=== PATIENT | female | born 1985 | race American Indian/Alaskan Native ===

== ENCOUNTER 2018-02-03 23:33 | Inpatient (IN) | payer OTHER ==
[2018-02-04 00:22] LABS: Mean Corpuscular HGB Conc 30 % (30-34); Mean Corpuscular Hemoglobin 28 pg (28-32); Mean Corpuscular Volume 95 fl (79-97); Platelet Count 173 K/mm3 (140-440); Red Cell Distribution Width 14.9 % (13.2-15.2)
[2018-02-04 00:25] LABS: Hematocrit 38.9 % (30.3-42.9); Hemoglobin 11.6 gm/dl (10.1-14.3)
[2018-02-04] MEDS ORDERED: NACL 0.9% 1000 ML 2,000 ML ONE (00:27)
[2018-02-04] MEDS ORDERED: HumuLIN R IV ONE (00:42)
[2018-02-04] MEDS ORDERED: D50W (25GM) Syringe IV PRN (00:43)
[2018-02-04] MEDS ORDERED: PROTONIX IV ONE (00:48)
[2018-02-04] MEDS ORDERED: PROTONIX 80 MG in NACL 0.9% 100 ML IV SCH (01:00)
[2018-02-04] MEDS ORDERED: ZOFRAN IV ONE (01:01)
--- NOTE | 2018-02-04 01:12 | Emergency Department Report ---
ED General Adult HPI - General Chief complaint: Hyperglycemia Stated complaint: HIGH BLOOD SUGAR Time Seen by Provider: 02/04/18 00:25 Source: patient, EMS Mode of arrival: Stretcher Limitations: No Limitations - History of Present Illness Initial comments: pt. is here for vomiting dark material and feels weak. this satrted today. she denies any abdominal pain. no fever. pt.takes insulin and says she as been taking it regularly MD Complaint: vomiting -: Gradual Location: mouth Radiation: non-radiation Severity scale (0 -10): 0 Consistency: intermittent Improves with: none Worsens with: none Associated Symptoms: denies other symptoms Treatments Prior to Arrival: none - Related Data Allergies Allergy/AdvReac Type Severity Reaction Status Date / Time No Known Allergies Allergy Verified 02/04/18 00:44 ED Review of Systems ROS: Stated complaint: HIGH BLOOD SUGAR Other details as noted in HPI Comment: All other systems reviewed and negative ED Past Medical Hx - Past Medical History Hx Diabetes: Yes - Surgical History Past Surgical History?: No - Social History Smoking Status: Never Smoker Substance Use Type: None ED Physical Exam - General Limitations: No Limitations General appearance: alert, in distress (moderate form vomting) - Head Head exam: Present: atraumatic, normocephalic - Eye Eye exam: Present: normal appearance, PERRL - ENT ENT exam: Present: mucous membranes moist - Neck Neck exam: Present: normal inspection - Respiratory Respiratory exam: Present: normal lung sounds bilaterally. Absent: respiratory distress - Cardiovascular Cardiovascular Exam: Present: regular rate, normal rhythm. Absent: systolic murmur, diastolic murmur, rubs, gallop - GI/Abdominal GI/Abdominal exam: Present: soft, normal bowel sounds. Absent: tenderness - Rectal Rectal exam: Present: deferred - Extremities Exam Extremities exam: Present: normal inspection - Back Exam Back exam: Present: normal inspection - Neurological Exam Neurological exam: Present: alert, oriented X3 - Psychiatric Psychiatric exam: Present: normal affect, normal mood - Skin Skin exam: Present: warm, dry, intact, normal color. Absent: rash ED Course Vital Signs 02/03/18 02/03/18 02/04/18 23:34 23:38 00:02 Temperature 97.7 F Pulse Rate 112 H 109 H Respiratory 14 14 16 Rate Blood Pressure 116/70 Blood Pressure 109/69 [Left] O2 Sat by Pulse 99 99 100 Oximetry 02/04/18 00:16 Temperature Pulse Rate 107 H Respiratory 26 H Rate Blood Pressure 116/70 Blood Pressure [Left] O2 Sat by Pulse 99 Oximetry ED Medical Decision Making - Lab Data Result diagrams: 02/03/18 23:44 02/03/18 23:44 - Medical Decision Making i spoke to Dr Tucker who as accepted the patient for admission Critical care attestation.: If time is entered above; I have spent that time in minutes in the direct care of this critically ill patient, excluding procedure time. ED Disposition Clinical Impression: DKA (diabetic ketoacidoses) Disposition: OP ADMIT IP TO THIS HOSP Is pt being admited?: Yes Does the pt Need Aspirin: No Condition: Stable Instructions: Diabetic Ketoacidosis (ED) Referrals: MARIANN SOFIA MD [Primary Care Provider] - 3-5 Days Time of Disposition: 01:13 Print Language: HEBREW
[2018-02-04 01:18] LABS: BUN/Creatinine Ratio 18; Blood Urea Nitrogen 21 mg/dL (7-17); Calcium 8.3 mg/dL (8.4-10.2); Hemolysis Index 6
[2018-02-04] MEDS ORDERED: SODIUM BICARBONATE IV ONE ×4 (01:28→08:00)
[2018-02-04] MEDS ORDERED: SODIUM CHLORIDE FLUSH SYRINGE 10 ML IV PRN (01:32)
[2018-02-04] MEDS ORDERED: ZOFRAN IV PRN (01:32)
--- NOTE | 2018-02-04 01:35 | History and Physical Report ---
History of Present Illness Date of examination: 02/04/18 History of present illness: 32 -year-old woman with a history of insulin-dependent diabetes comes emergency room with complaints of nausea and vomiting that started yesterday morning. After third episodes of vomiting, she started vomiting coffee-ground emesis, she has had multiple such episodes. She denies NSAID use. States she is compliant with medications. Complaining of generalized weakness Review of systems Constitutional: no weight loss, chills Ears, eyes, nose, mouth and throat: no nasal congestion, no nasal discharge, no sinus pressure, no vision change, no red eye. Neck: No neck pain or rigidity. Cardiovascular: no chest pain, palpitations Respiratory: No cough, shortness of breath Gastrointestinal: no abdominal pain, hematochezia Genitourinary : no dysuria, frequency , no hematuria Musculoskeletal: no joint swelling or muscle ache Integumentary: no rash, no pruritis Neurological: no parathesias, no numbness, no focal weakness Endocrine: no cold or heat intolerance, no polyuria or polydipsia Hematologic/Lymphatic: no easy bruising, no easy bleeding, no gland swelling Allergic/Immunologic: no urticaria, no angioedema. PAST MEDICAL HISTORY: Diabetes PAST SURGICAL HISTORY: None SOCIAL HISTORY: Denies alcohol, tobacco, drugs FAMILY HISTORY: Diabetes Medications and Allergies Allergies Allergy/AdvReac Type Severity Reaction Status Date / Time No Known Allergies Allergy Verified 02/04/18 00:44 Active Meds: Active Medications Dextrose (D50w (25gm) Syringe) 0 ml IV ONCE PRN PRN Reason: Hypoglycemia Insulin Human Regular 100 (units/ Sodium Chloride) 100 mls @ 1 mls/hr IV TITR LEONIDAS; Protocol Pantoprazole Sodium 80 mg/ (Sodium Chloride) 100 mls @ 10 mls/hr IV Q10H LEONIDAS Sodium Bicarbonate (Sodium Bicarbonate) 50 meq IV ONCE ONE Stop: 02/04/18 02:01 Exam - Physical Exam Narrative exam: Gen. appearance: Patient lying in bed, no apparent distress HEENT: Normocephalic, atraumatic, pupils equally round and reactive to light, extraocular movement intact, and no sclericterus,. No JVD or thyromegaly or nodule,neck supple, no carotid bruit ,mucous membranes moist, no exudate or erythema Heart: S1, S2, regular rate and rhythm Lungs: Clear to auscultation bilaterally, breathing comfortable Abdomen: Positive bowel sounds, nontender, nondistended, no organomegaly Extremity: No edema, cyanosis, clubbing Skin: No rash, nodules, warm, dry Neuro: Oriented 3, cranial nerves II-12 intact, speech is fluent, motor and sensory intact - Constitutional Vitals: Temp Pulse Resp BP Pulse Ox 97.7 F 107 H 26 H 116/70 99 02/03/18 23:34 02/04/18 00:16 02/04/18 00:16 02/04/18 00:16 02/04/18 00:16 Results - Labs CBC & Chem 7: 02/04/18 04:23 02/04/18 02:59 Labs: Abnormal lab results 02/03/18 02/03/18 02/03/18 Range/Units 23:41 23:44 23:44 WBC 12.4 H (4.5-11.0) K/mm3 VBG pH (7.320-7.420) Sodium 134 L (137-145) mmol/L Chloride 93.2 L (98-107) mmol/L Carbon Dioxide 7 L* (22-30) mmol/L BUN 21 H (7-17) mg/dL Creatinine 1.3 H (0.7-1.2) mg/dL Glucose 683 H* (65-100) mg/dL POC Glucose > 500 H (70-105) Calcium 8.0 L (8.4-10.2) mg/dL Phosphorus (2.5-4.5) mg/dL 02/03/18 02/04/18 Range/Units 23:44 00:56 WBC (4.5-11.0) K/mm3 VBG pH 7.204 L (7.320-7.420) Sodium (137-145) mmol/L Chloride 95.1 L (98-107) mmol/L Carbon Dioxide 6 L* (22-30) mmol/L BUN 21 H (7-17) mg/dL Creatinine (0.7-1.2) mg/dL Glucose 671 H* (65-100) mg/dL POC Glucose (70-105) Calcium 8.3 L (8.4-10.2) mg/dL Phosphorus 5.20 H (2.5-4.5) mg/dL Assessment and Plan Assessment DKA GI bleed, slightly secondary to Carole-Marie tear Plan Admit to medicine Start DKA protocol with insulin drip, the fluid check serial chemistry, fingersticks, given amp of bicarbonate Continue Protonix drip, check serial hemoglobin, cxr, pt/inr Consult GI, critical care, check hemoglobin A1c case d/w Dr Mclean DVT prophalaxis
[2018-02-04] MEDS ORDERED: D5/0.45NS 1,000 ML IV SCH (02:00)
[2018-02-04] MEDS: HumuLIN R 100 UNITS in NACL 0.9% 99 ML IV SCH ×2 (02:02→10:40)
[2018-02-04 02:17] LABS: Bilirubin,Urine NEG (Negative); Blood,Urine NEG (Negative); Color,Urine Yellow (Yellow); Mucus,Urine FEW /HPF; Protein,Urine <15 mg/dL mg/dL (Negative); RBC,Urine < 1.0 /HPF (0.0-6.0); Urobilinogen,Urine < 2.0 mg/dL (<2.0)
[2018-02-04 02:45] LABS: WBC,Urine < 1.0 /HPF (0.0-6.0)
[2018-02-04] MEDS: ZOFRAN IV PRN ×4 (03:02→23:35)
[2018-02-04] MEDS: NACL 0.9% 1000 ML 1,000 ML IV SCH ×2 (03:04→09:25)
[2018-02-04 03:48] LABS: Hematocrit 37.9 % (30.3-42.9); Hemoglobin 11.9 gm/dl (10.1-14.3)
[2018-02-04 03:52] LABS: Basophils % (Manual) 0 % (0.0-1.8); Eosinophils % (Manual) 0 % (0.0-4.3); Total Cells Counted 100
[2018-02-04 03:54] LABS: Burr Cells Rare; Platelet Estimate Consistent w Auto
[2018-02-04 03:57] LABS: INR 0.94 (0.87-1.13); Partial Thromboplastin Time 30.3 Sec. (24.2-36.6)
[2018-02-04 04:10] LABS: BUN/Creatinine Ratio 16; Blood Urea Nitrogen 19 mg/dL (7-17); Calcium 7.4 mg/dL (8.4-10.2); Hemolysis Index 6
--- NOTE | 2018-02-04 05:21 | XRay Report ---
FINAL REPORT EXAM: XR CHEST 1V AP HISTORY: gib TECHNIQUE: A portable semi-upright view the chest was submitted. FINDINGS: The heart size and mediastinum appear normal. The lungs are clear. The lungs are not congested. Pleural fluid is not seen. The bones and soft tissues do not show any acute changes. IMPRESSION: No active chest disease.
[2018-02-04 05:26] LABS: Hematocrit 34.4 % (30.3-42.9); Hemoglobin 11.5 gm/dl (10.1-14.3)
[2018-02-04] MEDS ORDERED: SODIUM BICARBONATE IV STA (06:40)
[2018-02-04] MEDS ORDERED: SODIUM BICARBONATE 50 MEQ in NACL 0.9% 1000 ML 1,000 ML IV SCH (07:00)
[2018-02-04 07:38] LABS: BUN/Creatinine Ratio 15; Blood Urea Nitrogen 17 mg/dL (7-17); Calcium 7.4 mg/dL (8.4-10.2); Hemolysis Index 6
--- NOTE | 2018-02-04 08:12 | Consultation ---
History of Present Illness - Reason for Consult Consult date: 02/04/18 DKA Requesting physician: DENZEL GRAHAM - History of Present Illness 32 y/o female, type 1 diabetic, on Humalog 15 in the morning and 30 at night admitted with DKA, nausea vomiting and abdominal pain. Patient states that she has been taking all medications and has not missed any. No sick contacts. She is not sure why she went into DKA. Denies dietary indiscretion. Remainder is negative. Past History Past Medical History: diabetes Past Surgical History: No surgical history Social history: no significant social history Family history: diabetes Medications and Allergies Allergies Allergy/AdvReac Type Severity Reaction Status Date / Time No Known Allergies Allergy Verified 02/04/18 00:44 Active Meds: Active Medications Dextrose (D50w (25gm) Syringe) 0 ml IV ONCE PRN PRN Reason: Hypoglycemia Insulin Human Regular 100 (units/ Sodium Chloride) 100 mls @ 1 mls/hr IV TITR LEONIDAS; Protocol Last Titration: 02/04/18 06:24 Dose: 14 units/hr, 14 mls/hr Pantoprazole Sodium 80 mg/ (Sodium Chloride) 100 mls @ 10 mls/hr IV Q10H LEONIDAS Last Admin: 02/04/18 02:01 Dose: 8 mg/hr, 10 mls/hr Dextrose/Sodium Chloride (D5/0.45ns) 1,000 mls @ 150 mls/hr IV DIRECT LEONIDAS Sodium Chloride (Nacl 0.9% 1000 Ml) 1,000 mls @ 150 mls/hr IV DIRECT LEONIDAS Last Admin: 02/04/18 03:04 Dose: 150 mls/hr Ondansetron HCl (Zofran) 4 mg IV Q4H PRN PRN Reason: Nausea And Vomiting Last Admin: 02/04/18 03:02 Dose: 4 mg Sodium Chloride (Sodium Chloride Flush Syringe 10 Ml) 10 ml IV BID LEONIDAS Sodium Chloride (Sodium Chloride Flush Syringe 10 Ml) 10 ml IV PRN PRN PRN Reason: LINE FLUSH Last Admin: 02/04/18 03:02 Dose: 10 ml Review of Systems All systems: negative Exam - Constitutional Vitals: Temp Pulse Resp BP Pulse Ox 98.3 F 100 H 19 113/71 100 02/04/18 04:11 02/04/18 07:44 02/04/18 07:44 02/04/18 06:37 02/04/18 07:44 General appearance: Present: mild distress - EENT Eyes: Present: PERRL, EOM intact ENT: hearing intact, clear oral mucosa - Neck Neck: Present: supple, normal ROM - Respiratory Respiratory effort: normal Respiratory: bilateral: CTA - Cardiovascular Rhythm: regular Heart Sounds: Present: S1 & S2 - Extremities Extremities: no ischemia - Abdominal General gastrointestinal: Present: soft, non-tender Female genitourinary: Present: deferred - Rectal Rectal Exam: deferred - Integumentary Integumentary: Present: clear, warm, dry - Musculoskeletal Musculoskeletal: strength equal bilaterally - Neurologic Neurologic: CNII-XII intact Results - Labs CBC & Chem 7: 02/04/18 04:23 02/04/18 07:01 Labs: Abnormal lab results 02/03/18 02/03/18 02/03/18 Range/Units 23:41 23:44 23:44 WBC 12.4 H (4.5-11.0) K/mm3 Seg Neuts % (Manual) 95.0 H (40.0-70.0) % Lymphocytes % (Manual) 2.0 L (13.4-35.0) % Seg Neutrophils # Man 11.8 H (1.8-7.7) K/mm3 Lymphocytes # (Manual) 0.2 L (1.2-5.4) K/mm3 VBG pH (7.320-7.420) Sodium 134 L (137-145) mmol/L Potassium (3.6-5.0) mmol/L Chloride 93.2 L (98-107) mmol/L Carbon Dioxide 7 L* (22-30) mmol/L BUN 21 H (7-17) mg/dL Creatinine 1.3 H (0.7-1.2) mg/dL Glucose 683 H* (65-100) mg/dL POC Glucose > 500 H (70-105) Hemoglobin A1c (4-6) % Calcium 8.0 L (8.4-10.2) mg/dL Phosphorus (2.5-4.5) mg/dL 02/03/18 02/04/18 02/04/18 Range/Units 23:44 00:56 02:44 WBC (4.5-11.0) K/mm3 Seg Neuts % (Manual) (40.0-70.0) % Lymphocytes % (Manual) (13.4-35.0) % Seg Neutrophils # Man (1.8-7.7) K/mm3 Lymphocytes # (Manual) (1.2-5.4) K/mm3 VBG pH 7.204 L (7.320-7.420) Sodium (137-145) mmol/L Potassium (3.6-5.0) mmol/L Chloride 95.1 L (98-107) mmol/L Carbon Dioxide 6 L* (22-30) mmol/L BUN 21 H (7-17) mg/dL Creatinine (0.7-1.2) mg/dL Glucose 671 H* (65-100) mg/dL POC Glucose 415 H (70-105) Hemoglobin A1c (4-6) % Calcium 8.3 L (8.4-10.2) mg/dL Phosphorus 5.20 H (2.5-4.5) mg/dL 02/04/18 02/04/18 02/04/18 Range/Units 02:59 02:59 04:10 WBC (4.5-11.0) K/mm3 Seg Neuts % (Manual) (40.0-70.0) % Lymphocytes % (Manual) (13.4-35.0) % Seg Neutrophils # Man (1.8-7.7) K/mm3 Lymphocytes # (Manual) (1.2-5.4) K/mm3 VBG pH (7.320-7.420) Sodium (137-145) mmol/L Potassium (3.6-5.0) mmol/L Chloride (98-107) mmol/L Carbon Dioxide 6 L* (22-30) mmol/L BUN 19 H (7-17) mg/dL Creatinine (0.7-1.2) mg/dL Glucose 473 H (65-100) mg/dL POC Glucose 308 H (70-105) Hemoglobin A1c 14.0 H (4-6) % Calcium 7.4 L (8.4-10.2) mg/dL Phosphorus (2.5-4.5) mg/dL 02/04/18 02/04/18 02/04/18 Range/Units 05:05 06:24 07:01 WBC (4.5-11.0) K/mm3 Seg Neuts % (Manual) (40.0-70.0) % Lymphocytes % (Manual) (13.4-35.0) % Seg Neutrophils # Man (1.8-7.7) K/mm3 Lymphocytes # (Manual) (1.2-5.4) K/mm3 VBG pH (7.320-7.420) Sodium 147 H (137-145) mmol/L Potassium 3.5 L (3.6-5.0) mmol/L Chloride (98-107) mmol/L Carbon Dioxide 10 L (22-30) mmol/L BUN (7-17) mg/dL Creatinine (0.7-1.2) mg/dL Glucose 363 H (65-100) mg/dL POC Glucose 338 H 377 H (70-105) Hemoglobin A1c (4-6) % Calcium 7.4 L (8.4-10.2) mg/dL Phosphorus (2.5-4.5) mg/dL - Imaging and Cardiology Chest x-ray: image reviewed (clear) Assessment and Plan 32 y/o female with known type 1 diabetes admitted with nausea and vomiting, found to be in DKA with concern for GI bleed with coffee ground emesis. 1. H/H's have been stable. Will stop PPI drip and change to BID IV PPI for now. 2. Follow up any GI recs 3. Continue normal saline and then when sugar drops below 250 will change to D5W with potassium 4. Will give IV K runs now. 5. Continue NPO status CCT 31 minutes.
[2018-02-04] MEDS: KCL 10MEQ/100ML 10 MEQ/100 ML BAG IV SCH ×4 (09:25→12:53)
[2018-02-04 09:28] LABS: BUN/Creatinine Ratio 15; Blood Urea Nitrogen 16 mg/dL (7-17); Calcium 7.7 mg/dL (8.4-10.2); Hemolysis Index 8
--- NOTE | 2018-02-04 11:06 | Progress Note ---
Assessment and Plan Assessment and plan: ([employer] crashed and lost entire a/p) DKA: continue insulin drip, ivf, follow anion gap Hematemesis: gi to see, repeat h/h IDDM uncontrolled with acidosis: treat with ivf and insulin N/V: treat with antiemetics, keep npo for now Diarrhea, resolved today, c.diffe ordered upon admission HCG ordered but not done History Interval history: Patient was seen and examined. Follow-up on current diagnosis of nausea or vomiting. Patient denies vomiting but she still nauseous. Overnight uneventful. Patient denies any chest pain, shortness breath or severe headaches. Imaging, nursing note, chart, labs and old chart reviewed. Discussed with patient. Patient denies any diarrhea currently. Hospitalist Physical - Physical exam Narrative exam: GEN: WDWN, ill-appearing, NAD, AWAKE, ALERT, ORIENTATED HEENT: NCAT, EOMI, PERRL, OP Clear NECK: supple, no adenopathy, no thyromegaly, no JVD CVS/HEART: Regular tachycardia, NORMAL S1S2, pulses present bilaterally CHEST/LUNGS: CTA B, Symmetrical chest expansion, good air entry bilaterally GI/Abdomen: soft, NTND, good bowel sounds, no guarding or rebound /Bladder: no suprapubic tenderness, no CVA or paraspinal tenderness EXT/Skin: no c/c/e, no obvious rash, mucous membranes dry MSK: FROM x 4 Neuro: CN 2-12 grossly intact, no new focal deficits Psych: calm - Constitutional Vitals: Temp Pulse Resp BP Pulse Ox 98.3 F 113 H 26 H 117/72 98 02/04/18 08:00 02/04/18 08:30 02/04/18 08:30 02/04/18 08:30 02/04/18 08:30 Results - Labs CBC & Chem 7: 02/04/18 04:23 02/04/18 08:52 Labs: Laboratory Last Values WBC 12.4 K/mm3 (4.5-11.0) H 02/03/18 23:44 RBC 4.10 M/mm3 (3.65-5.03) 02/03/18 23:44 Hgb 11.5 gm/dl (10.1-14.3) 02/04/18 04:23 Hct 34.4 % (30.3-42.9) 02/04/18 04:23 MCV 95 fl (79-97) 02/03/18 23:44 MCH 28 pg (28-32) 02/03/18 23:44 MCHC 30 % (30-34) 02/03/18 23:44 RDW 14.9 % (13.2-15.2) 02/03/18 23:44 Plt Count 173 K/mm3 (140-440) 02/03/18 23:44 Add Manual Diff Complete 02/03/18 23:44 Total Counted 100 02/03/18 23:44 Seg Neutrophils % Mattress Filling Machine Tender 02/03/18 23:44 Seg Neuts % (Manual) 95.0 % (40.0-70.0) H 02/03/18 23:44 Band Neutrophils % 0 % 02/03/18 23:44 Lymphocytes % (Manual) 2.0 % (13.4-35.0) L 02/03/18 23:44 Reactive Lymphs % (Man) 0 % 02/03/18 23:44 Monocytes % (Manual) 3.0 % (0.0-7.3) 02/03/18 23:44 Eosinophils % (Manual) 0 % (0.0-4.3) 02/03/18 23:44 Basophils % (Manual) 0 % (0.0-1.8) 02/03/18 23:44 Metamyelocytes % 0 % 02/03/18 23:44 Myelocytes % 0 % 02/03/18 23:44 Promyelocytes % 0 % 02/03/18 23:44 Blast Cells % 0 % 02/03/18 23:44 Nucleated RBC % Not Reportable 02/03/18 23:44 Seg Neutrophils # Man 11.8 K/mm3 (1.8-7.7) H 02/03/18 23:44 Band Neutrophils # 0.0 K/mm3 02/03/18 23:44 Lymphocytes # (Manual) 0.2 K/mm3 (1.2-5.4) L 02/03/18 23:44 Abs React Lymphs (Man) 0.0 K/mm3 02/03/18 23:44 Monocytes # (Manual) 0.4 K/mm3 (0.0-0.8) 02/03/18 23:44 Eosinophils # (Manual) 0.0 K/mm3 (0.0-0.4) 02/03/18 23:44 Basophils # (Manual) 0.0 K/mm3 (0.0-0.1) 02/03/18 23:44 Metamyelocytes # 0.0 K/mm3 02/03/18 23:44 Myelocytes # 0.0 K/mm3 02/03/18 23:44 Promyelocytes # 0.0 K/mm3 02/03/18 23:44 Blast Cells # 0.0 K/mm3 02/03/18 23:44 WBC Morphology Not Reportable 02/03/18 23:44 Hypersegmented Neuts Not Reportable 02/03/18 23:44 Hyposegmented Neuts Not Reportable 02/03/18 23:44 Hypogranular Neuts Not Reportable 02/03/18 23:44 Smudge Cells Not Reportable 02/03/18 23:44 Toxic Granulation Not Reportable 02/03/18 23:44 Toxic Vacuolation Not Reportable 02/03/18 23:44 Dohle Bodies Not Reportable 02/03/18 23:44 Pelger-Huet Anomaly Not Reportable 02/03/18 23:44 Lucas Rods Not Reportable 02/03/18 23:44 Platelet Estimate Consistent w auto 02/03/18 23:44 Clumped Platelets Not Reportable 02/03/18 23:44 Plt Clumps, EDTA Not Reportable 02/03/18 23:44 Large Platelets Not Reportable 02/03/18 23:44 Giant Platelets Not Reportable 02/03/18 23:44 Platelet Satelliting Not Reportable 02/03/18 23:44 Plt Morphology Comment Not Reportable 02/03/18 23:44 RBC Morphology Not Reportable 02/03/18 23:44 Dimorphic RBCs Not Reportable 02/03/18 23:44 Polychromasia Not Reportable 02/03/18 23:44 Hypochromasia Not Reportable 02/03/18 23:44 Poikilocytosis Not Reportable 02/03/18 23:44 Anisocytosis Not Reportable 02/03/18 23:44 Microcytosis Not Reportable 02/03/18 23:44 Macrocytosis Not Reportable 02/03/18 23:44 Spherocytes Not Reportable 02/03/18 23:44 Pappenheimer Bodies Not Reportable 02/03/18 23:44 Sickle Cells Not Reportable 02/03/18 23:44 Target Cells Not Reportable 02/03/18 23:44 Tear Drop Cells Not Reportable 02/03/18 23:44 Ovalocytes Not Reportable 02/03/18 23:44 Helmet Cells Not Reportable 02/03/18 23:44 [place] Bodies Not Reportable 02/03/18 23:44 Wesley Rings Not Reportable 02/03/18 23:44 [place] Cells Rare 02/03/18 23:44 Bite Cells Not Reportable 02/03/18 23:44 Crenated Cell Not Reportable 02/03/18 23:44 Elliptocytes Not Reportable 02/03/18 23:44 Acanthocytes (Spur) Not Reportable 02/03/18 23:44 Rouleaux Not Reportable 02/03/18 23:44 Hemoglobin C Crystals Not Reportable 02/03/18 23:44 Schistocytes Not Reportable 02/03/18 23:44 Malaria parasites Not Reportable 02/03/18 23:44 Afshin Bodies Not Reportable 02/03/18 23:44 Hem Pathologist Commnt No 02/03/18 23:44 PT 13.0 Sec. (12.2-14.9) 02/04/18 02:59 INR 0.94 (0.87-1.13) 02/04/18 02:59 APTT 30.3 Sec. (24.2-36.6) 02/04/18 02:59 VBG pH 7.204 (7.320-7.420) L 02/03/18 23:44 Sodium 144 mmol/L (137-145) 02/04/18 08:52 Potassium 3.5 mmol/L (3.6-5.0) L 02/04/18 08:52 Chloride 105.8 mmol/L (98-107) 02/04/18 08:52 Carbon Dioxide 10 mmol/L (22-30) L 02/04/18 08:52 Anion Gap 32 mmol/L 02/04/18 08:52 BUN 16 mg/dL (7-17) 02/04/18 08:52 Creatinine 1.1 mg/dL (0.7-1.2) 02/04/18 08:52 Estimated GFR > 60 ml/min 02/04/18 08:52 BUN/Creatinine Ratio 15 % 02/04/18 08:52 Glucose 361 mg/dL (65-100) H 02/04/18 08:52 POC Glucose 377 (70-105) H 02/04/18 06:24 Hemoglobin A1c 14.0 % (4-6) H 02/04/18 02:59 Calcium 7.7 mg/dL (8.4-10.2) L 02/04/18 08:52 Phosphorus 5.20 mg/dL (2.5-4.5) H 02/04/18 00:56 Magnesium 2.10 mg/dL (1.7-2.3) 02/04/18 00:56 Urine Color Yellow (Yellow) 02/04/18 02:00 Urine Turbidity Clear (Clear) 02/04/18 02:00 Urine pH 5.0 (5.0-7.0) 02/04/18 02:00 Ur Specific [place] 1.023 (1.003-1.030) 02/04/18 02:00 Urine Protein <15 mg/dl mg/dL (Negative) 02/04/18 02:00 Urine Glucose (UA) >=500 mg/dL (Negative) 02/04/18 02:00 Urine Ketones 80 mg/dL (Negative) 02/04/18 02:00 Urine Blood Neg (Negative) 02/04/18 02:00 Urine Nitrite Neg (Negative) 02/04/18 02:00 Urine Bilirubin Neg (Negative) 02/04/18 02:00 Urine Urobilinogen < 2.0 mg/dL (<2.0) 02/04/18 02:00 Ur Leukocyte Esterase Neg (Negative) 02/04/18 02:00 Urine WBC (Auto) < 1.0 /HPF (0.0-6.0) 02/04/18 02:00 Urine RBC (Auto) < 1.0 /HPF (0.0-6.0) 02/04/18 02:00 U Epithel Cells (Auto) < 1.0 /HPF (0-13.0) 02/04/18 02:00 Urine Mucus Few /HPF 02/04/18 02:00
[2018-02-04] MEDS: KCL 40 MEQ in D5W 1,000 ML IV SCH ×2 (11:30→17:59)
--- NOTE | 2018-02-04 12:25 | Consultation ---
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 She initially vomited food debris, and then blackish-green liquid. No daniel GI bleed. She vomited 2x at work, and then hourly at home, and presented to the ER where she was found to be in DKA. She has these episodes 1-2x/year over the last 3 years, and this is a typical episode. She denies prior GI bleed, or PUD. She has epigastric pain with vomiting. No prior abd pain. BMs 2-3x/d, no change. No F/C/NS. No clear precipitants. No hx of GERD. Denies EtOH or significant NSAIDs. Past History Past Medical History: diabetes (since age 19. Typically followed at [facility].) Past Surgical History: No surgical history Social history: no significant social history Family history: diabetes Medications and Allergies Allergies Allergy/AdvReac Type Severity Reaction Status Date / Time No Known Allergies Allergy Verified 02/04/18 00:44 Active Meds: Active Medications Dextrose (D50w (25gm) Syringe) 0 ml IV ONCE PRN PRN Reason: Hypoglycemia Insulin Human Regular 100 (units/ Sodium Chloride) 100 mls @ 1 mls/hr IV TITR LEONIDAS; Protocol Last Titration: 02/04/18 09:30 Dose: 14 units/hr, 14 mls/hr Sodium Chloride (Nacl 0.9% 1000 Ml) 1,000 mls @ 150 mls/hr IV DIRECT LEONIDAS Last Admin: 02/04/18 09:25 Dose: 150 mls/hr Potassium Chloride 40 meq/ (Dextrose) 1,020 mls @ 150 mls/hr IV DIRECT LEONIDAS Potassium Chloride (Kcl 10meq/100ml) 10 meq in 100 mls @ 100 mls/hr IV Q1H LEONIDAS Stop: 02/04/18 12:59 Last Admin: 02/04/18 09:25 Dose: 100 mls/hr Ondansetron HCl (Zofran) 4 mg IV Q4H PRN PRN Reason: Nausea And Vomiting Last Admin: 02/04/18 09:25 Dose: 4 mg Pantoprazole Sodium (Protonix) 40 mg IV BID LEONIDAS Sodium Chloride (Sodium Chloride Flush Syringe 10 Ml) 10 ml IV BID LEONIDAS Sodium Chloride (Sodium Chloride Flush Syringe 10 Ml) 10 ml IV PRN PRN PRN Reason: LINE FLUSH Last Admin: 02/04/18 03:02 Dose: 10 ml Review of Systems All systems: negative (as per HPI) Exam - Constitutional Vitals: Temp Pulse Resp BP Pulse Ox 98.3 F 91 H 22 103/55 98 02/04/18 08:00 02/04/18 12:00 02/04/18 12:00 02/04/18 12:00 02/04/18 10:01 General appearance: Present: no acute distress - EENT Eyes: Present: PERRL, EOM intact ENT: hearing intact - Neck Neck: Present: supple, normal ROM - Respiratory Respiratory effort: normal - Cardiovascular Rhythm: regular Heart Sounds: Present: S1 & S2 - Extremities Extremities: No edema - Abdominal General gastrointestinal: Present: soft, non-tender Results - Labs CBC & Chem 7: 02/04/18 04:23 02/04/18 08:52 Labs: Abnormal lab results 02/03/18 02/03/18 02/03/18 Range/Units 23:41 23:44 23:44 WBC 12.4 H (4.5-11.0) K/mm3 Seg Neuts % (Manual) 95.0 H (40.0-70.0) % Lymphocytes % (Manual) 2.0 L (13.4-35.0) % Seg Neutrophils # Man 11.8 H (1.8-7.7) K/mm3 Lymphocytes # (Manual) 0.2 L (1.2-5.4) K/mm3 VBG pH (7.320-7.420) Sodium 134 L (137-145) mmol/L Potassium (3.6-5.0) mmol/L Chloride 93.2 L (98-107) mmol/L Carbon Dioxide 7 L* (22-30) mmol/L BUN 21 H (7-17) mg/dL Creatinine 1.3 H (0.7-1.2) mg/dL Glucose 683 H* (65-100) mg/dL POC Glucose > 500 H (70-105) Hemoglobin A1c (4-6) % Calcium 8.0 L (8.4-10.2) mg/dL Phosphorus (2.5-4.5) mg/dL 02/03/18 02/04/18 02/04/18 Range/Units 23:44 00:56 02:44 WBC (4.5-11.0) K/mm3 Seg Neuts % (Manual) (40.0-70.0) % Lymphocytes % (Manual) (13.4-35.0) % Seg Neutrophils # Man (1.8-7.7) K/mm3 Lymphocytes # (Manual) (1.2-5.4) K/mm3 VBG pH 7.204 L (7.320-7.420) Sodium (137-145) mmol/L Potassium (3.6-5.0) mmol/L Chloride 95.1 L (98-107) mmol/L Carbon Dioxide 6 L* (22-30) mmol/L BUN 21 H (7-17) mg/dL Creatinine (0.7-1.2) mg/dL Glucose 671 H* (65-100) mg/dL POC Glucose 415 H (70-105) Hemoglobin A1c (4-6) % Calcium 8.3 L (8.4-10.2) mg/dL Phosphorus 5.20 H (2.5-4.5) mg/dL 02/04/18 02/04/18 02/04/18 Range/Units 02:59 02:59 04:10 WBC (4.5-11.0) K/mm3 Seg Neuts % (Manual) (40.0-70.0) % Lymphocytes % (Manual) (13.4-35.0) % Seg Neutrophils # Man (1.8-7.7) K/mm3 Lymphocytes # (Manual) (1.2-5.4) K/mm3 VBG pH (7.320-7.420) Sodium (137-145) mmol/L Potassium (3.6-5.0) mmol/L Chloride (98-107) mmol/L Carbon Dioxide 6 L* (22-30) mmol/L BUN 19 H (7-17) mg/dL Creatinine (0.7-1.2) mg/dL Glucose 473 H (65-100) mg/dL POC Glucose 308 H (70-105) Hemoglobin A1c 14.0 H (4-6) % Calcium 7.4 L (8.4-10.2) mg/dL Phosphorus (2.5-4.5) mg/dL 02/04/18 02/04/18 02/04/18 Range/Units 05:05 06:24 07:01 WBC (4.5-11.0) K/mm3 Seg Neuts % (Manual) (40.0-70.0) % Lymphocytes % (Manual) (13.4-35.0) % Seg Neutrophils # Man (1.8-7.7) K/mm3 Lymphocytes # (Manual) (1.2-5.4) K/mm3 VBG pH (7.320-7.420) Sodium 147 H (137-145) mmol/L Potassium 3.5 L (3.6-5.0) mmol/L Chloride (98-107) mmol/L Carbon Dioxide 10 L (22-30) mmol/L BUN (7-17) mg/dL Creatinine (0.7-1.2) mg/dL Glucose 363 H (65-100) mg/dL POC Glucose 338 H 377 H (70-105) Hemoglobin A1c (4-6) % Calcium 7.4 L (8.4-10.2) mg/dL Phosphorus (2.5-4.5) mg/dL 02/04/18 Range/Units 08:52 WBC (4.5-11.0) K/mm3 Seg Neuts % (Manual) (40.0-70.0) % Lymphocytes % (Manual) (13.4-35.0) % Seg Neutrophils # Man (1.8-7.7) K/mm3 Lymphocytes # (Manual) (1.2-5.4) K/mm3 VBG pH (7.320-7.420) Sodium (137-145) mmol/L Potassium 3.5 L (3.6-5.0) mmol/L Chloride (98-107) mmol/L Carbon Dioxide 10 L (22-30) mmol/L BUN (7-17) mg/dL Creatinine (0.7-1.2) mg/dL Glucose 361 H (65-100) mg/dL POC Glucose (70-105) Hemoglobin A1c (4-6) % Calcium 7.7 L (8.4-10.2) mg/dL Phosphorus (2.5-4.5) mg/dL Assessment and Plan 1. N/V - due to DKA, and seems to be a typical episode. No evidence of coffee ground emesis, or of GI bleed. - no plans for GI intervention - correct DKA and optimize management. Will sign off. Thanks.
[2018-02-04] MEDS: PROTONIX IV SCH ×2 (12:52→23:35)
[2018-02-04 17:04] LABS: BUN/Creatinine Ratio 14; Blood Urea Nitrogen 13 mg/dL (7-17); Calcium 7.3 mg/dL (8.4-10.2); Hemolysis Index 26
[2018-02-04] MEDS: SODIUM CHLORIDE FLUSH SYRINGE 10 ML IV SCH ×2 (18:53→23:36)
[2018-02-04 23:28] LABS: HCG Qualitative,Urine Negative (Negative)
[2018-02-05 00:56] LABS: BUN/Creatinine Ratio 11; Blood Urea Nitrogen 10 mg/dL (7-17); Calcium 7.3 mg/dL (8.4-10.2); Hemolysis Index 4
[2018-02-05] MEDS: ZOFRAN IV PRN ×3 (04:31→15:26)
--- NOTE | 2018-02-05 08:28 | Progress Note ---
Assessment and Plan 32 y/o female with known type 1 diabetes admitted with nausea and vomiting, found to be in DKA with concern for GI bleed with coffee ground emesis. 1. Continue Insulin drip until Anion Gap is between 12-16 then can transition to long acting insulin after calculating her 24 hour requirement prior to gap closing. 2. Agree with GI, can change to pepcid given no history of GERD. Most likely daily dosing is fine 3. Ok with water, but no juice 4. Will reorder chemistries as most likely the timing on the protocol has completed. CCT 31 minutes. Subjective Date of service: 02/05/18 Interval history: patient feels better today. Anion Gap is improving. Sugars are better controlled but patient remains in ketogenesis. She is thirsty but does not have an appetite. Objective - Constitutional Vitals: Vital Signs - 12hr 02/04/18 02/04/18 02/04/18 21:00 22:00 23:01 Temperature Pulse Rate 93 H 92 H 97 H Pulse Rate [ From Monitor] Respiratory 13 16 20 Rate Blood Pressure 99/57 108/66 108/66 O2 Sat by Pulse Oximetry 02/04/18 02/05/18 02/05/18 23:35 00:00 00:35 Temperature 98.8 F Pulse Rate 99 H 95 H Pulse Rate [ 100 H From Monitor] Respiratory 17 21 Rate Blood Pressure 127/85 127/85 O2 Sat by Pulse 98 99 Oximetry 02/05/18 02/05/18 02/05/18 01:00 02:00 03:00 Temperature Pulse Rate 96 H 94 H 99 H Pulse Rate [ From Monitor] Respiratory 20 21 21 Rate Blood Pressure 110/73 114/75 124/79 O2 Sat by Pulse 99 98 98 Oximetry 02/05/18 02/05/18 02/05/18 04:00 05:00 06:00 Temperature 98.7 F Pulse Rate 100 H 103 H 103 H Pulse Rate [ From Monitor] Respiratory 21 21 22 Rate Blood Pressure 120/80 107/73 115/78 O2 Sat by Pulse 98 99 98 Oximetry 02/05/18 07:01 Temperature Pulse Rate 99 H Pulse Rate [ From Monitor] Respiratory 20 Rate Blood Pressure 115/78 O2 Sat by Pulse 99 Oximetry General appearance: Present: no acute distress, well-nourished - EENT Eyes: PERRL, EOM intact ENT: hearing intact, clear oral mucosa, dentition normal - Neck Neck: supple, normal ROM - Respiratory Respiratory effort: normal Respiratory: bilateral: CTA - Breasts Breasts: deferred - Cardiovascular Rhythm: regular (sinus tachycardia) Heart Sounds: Present: S1 & S2 Extremities: no ischemia, No edema - Gastrointestinal General gastrointestinal: Present: soft, non-tender, normal bowel sounds Rectal Exam: deferred - Genitourinary Female genitourinary: deferred - Integumentary Integumentary: clear, warm, dry - Musculoskeletal Musculoskeletal: strength equal bilaterally - Neurologic Neurologic: CNII-XII intact - Psychiatric Psychiatric: appropriate mood/affect - Labs CBC & Chem 7: 02/04/18 04:23 02/05/18 00:21 Labs: Abnormal lab results 02/04/18 02/04/18 02/04/18 Range/Units 08:17 08:52 09:33 Sodium (137-145) mmol/L Potassium 3.5 L (3.6-5.0) mmol/L Chloride (98-107) mmol/L Carbon Dioxide 10 L (22-30) mmol/L Glucose 361 H (65-100) mg/dL POC Glucose 372 H 272 H (70-105) Calcium 7.7 L (8.4-10.2) mg/dL 02/04/18 02/04/18 02/04/18 Range/Units 11:35 13:00 13:58 Sodium (137-145) mmol/L Potassium (3.6-5.0) mmol/L Chloride (98-107) mmol/L Carbon Dioxide (22-30) mmol/L Glucose (65-100) mg/dL POC Glucose 130 H 137 H 120 H (70-105) Calcium (8.4-10.2) mg/dL 02/04/18 02/04/18 02/04/18 Range/Units 14:45 16:28 16:35 Sodium 152 H D (137-145) mmol/L Potassium (3.6-5.0) mmol/L Chloride 112.9 H (98-107) mmol/L Carbon Dioxide 18 L D (22-30) mmol/L Glucose 128 H (65-100) mg/dL POC Glucose 126 H 123 H (70-105) Calcium 7.3 L (8.4-10.2) mg/dL 0402/04/18 02/04/18 Range/Units 18:54 20:04 21:08 Sodium (137-145) mmol/L Potassium (3.6-5.0) mmol/L Chloride (98-107) mmol/L Carbon Dioxide (22-30) mmol/L Glucose (65-100) mg/dL POC Glucose 123 H 124 H 122 H (70-105) Calcium (8.4-10.2) mg/dL 02/04/18 02/04/18 02/05/18 Range/Units 22:16 23:07 00:03 Sodium (137-145) mmol/L Potassium (3.6-5.0) mmol/L Chloride (98-107) mmol/L Carbon Dioxide (22-30) mmol/L Glucose (65-100) mg/dL POC Glucose 142 H 137 H 130 H (70-105) Calcium (8.4-10.2) mg/dL 02/05/18 02/05/18 02/05/18 Range/Units 00:21 01:15 02:25 Sodium 149 H (137-145) mmol/L Potassium (3.6-5.0) mmol/L Chloride 112.1 H (98-107) mmol/L Carbon Dioxide 19 L (22-30) mmol/L Glucose 122 H (65-100) mg/dL POC Glucose 142 H 152 H (70-105) Calcium 7.3 L (8.4-10.2) mg/dL 02/05/18 02/05/18 Range/Units 03:23 04:28 Sodium (137-145) mmol/L Potassium (3.6-5.0) mmol/L Chloride (98-107) mmol/L Carbon Dioxide (22-30) mmol/L Glucose (65-100) mg/dL POC Glucose 127 H 195 H (70-105) Calcium (8.4-10.2) mg/dL
[2018-02-05] MEDS: SODIUM CHLORIDE FLUSH SYRINGE 10 ML IV SCH ×2 (09:00→22:28)
[2018-02-05] MEDS: PROTONIX IV SCH ×2 (09:00→22:27)
[2018-02-05] MEDS ORDERED: COMPAZINE IV PRN (09:01)
[2018-02-05] MEDS ORDERED: D5W 1,000 ML IV SCH (10:00)
[2018-02-05] MEDS: HumuLIN R 100 UNITS in NACL 0.9% 99 ML IV SCH (11:01)
--- NOTE | 2018-02-05 11:38 | Progress Note ---
Assessment and Plan Assessment and plan: Patient is a 32 yo woman with a history of IDDM who presented with intractable n /v leading to retching and coffee ground emesis after repeated vomiting. DKA: continue insulin drip, ivf, follow anion gap Hematemesis resolved IDDM uncontrolled with acidosis: treat with ivf and insulin N/V: treat with antiemetics, keep npo for now Diarrhea, resolved today, c.diffe negative HCG ordered and negative 02/04/18: Still in icu on insulin drip and ivf, anion gap is closing, symptoms are improving, check anion gap at noon. Nurse will call me with results History Interval history: Patient was seen and examined. Follow-up on current diagnosis of nausea or vomiting. Patient denies vomiting and nauseous is improving. Overnight uneventful. Patient denies any chest pain, shortness breath or severe headaches. Imaging, nursing note, chart, labs and old chart reviewed. Discussed with patient. Patient denies any diarrhea currently. Hospitalist Physical - Physical exam Narrative exam: GEN: WDWN, ill-appearing, NAD, AWAKE, ALERT, ORIENTATED HEENT: NCAT, EOMI, PERRL, OP Clear NECK: supple, no adenopathy, no thyromegaly, no JVD CVS/HEART: Regular tachycardia, NORMAL S1S2, pulses present bilaterally CHEST/LUNGS: CTA B, Symmetrical chest expansion, good air entry bilaterally GI/Abdomen: soft, NTND, good bowel sounds, no guarding or rebound /Bladder: no suprapubic tenderness, no CVA or paraspinal tenderness EXT/Skin: no c/c/e, no obvious rash, mucous membranes dry MSK: FROM x 4 Neuro: CN 2-12 grossly intact, no new focal deficits Psych: calm - Constitutional Vitals: Temp Pulse Resp BP Pulse Ox 98.8 F 102 H 21 105/70 99 02/05/18 08:00 02/05/18 11:00 02/05/18 11:00 02/05/18 11:00 02/05/18 11:00 General appearance: Present: no acute distress, well-nourished Results - Labs CBC & Chem 7: 02/04/18 04:23 02/05/18 00:21 Labs: Laboratory Last Values WBC 12.4 K/mm3 (4.5-11.0) H 02/03/18 23:44 RBC 4.10 M/mm3 (3.65-5.03) 02/03/18 23:44 Hgb 11.5 gm/dl (10.1-14.3) 02/04/18 04:23 Hct 34.4 % (30.3-42.9) 02/04/18 04:23 MCV 95 fl (79-97) 02/03/18 23:44 MCH 28 pg (28-32) 02/03/18 23:44 MCHC 30 % (30-34) 02/03/18 23:44 RDW 14.9 % (13.2-15.2) 02/03/18 23:44 Plt Count 173 K/mm3 (140-440) 02/03/18 23:44 Add Manual Diff Complete 02/03/18 23:44 Total Counted 100 02/03/18 23:44 Seg Neutrophils % [employer]ber Management Professor 02/03/18 23:44 Seg Neuts % (Manual) 95.0 % (40.0-70.0) H 02/03/18 23:44 Band Neutrophils % 0 % 02/03/18 23:44 Lymphocytes % (Manual) 2.0 % (13.4-35.0) L 02/03/18 23:44 Reactive Lymphs % (Man) 0 % 02/03/18 23:44 Monocytes % (Manual) 3.0 % (0.0-7.3) 02/03/18 23:44 Eosinophils % (Manual) 0 % (0.0-4.3) 02/03/18 23:44 Basophils % (Manual) 0 % (0.0-1.8) 02/03/18 23:44 Metamyelocytes % 0 % 02/03/18 23:44 Myelocytes % 0 % 02/03/18 23:44 Promyelocytes % 0 % 02/03/18 23:44 Blast Cells % 0 % 02/03/18 23:44 Nucleated RBC % Not Reportable 02/03/18 23:44 Seg Neutrophils # Man 11.8 K/mm3 (1.8-7.7) H 02/03/18 23:44 Band Neutrophils # 0.0 K/mm3 02/03/18 23:44 Lymphocytes # (Manual) 0.2 K/mm3 (1.2-5.4) L 02/03/18 23:44 Abs React Lymphs (Man) 0.0 K/mm3 02/03/18 23:44 Monocytes # (Manual) 0.4 K/mm3 (0.0-0.8) 02/03/18 23:44 Eosinophils # (Manual) 0.0 K/mm3 (0.0-0.4) 02/03/18 23:44 Basophils # (Manual) 0.0 K/mm3 (0.0-0.1) 02/03/18 23:44 Metamyelocytes # 0.0 K/mm3 02/03/18 23:44 Myelocytes # 0.0 K/mm3 02/03/18 23:44 Promyelocytes # 0.0 K/mm3 02/03/18 23:44 Blast Cells # 0.0 K/mm3 02/03/18 23:44 WBC Morphology Not Reportable 02/03/18 23:44 Hypersegmented Neuts Not Reportable 02/03/18 23:44 Hyposegmented Neuts Not Reportable 02/03/18 23:44 Hypogranular Neuts Not Reportable 02/03/18 23:44 Smudge Cells Not Reportable 02/03/18 23:44 Toxic Granulation Not Reportable 02/03/18 23:44 Toxic Vacuolation Not Reportable 02/03/18 23:44 Dohle Bodies Not Reportable 02/03/18 23:44 Pelger-Huet Anomaly Not Reportable 02/03/18 23:44 Lucas Rods Not Reportable 02/03/18 23:44 Platelet Estimate Consistent w auto 02/03/18 23:44 Clumped Platelets Not Reportable 02/03/18 23:44 Plt Clumps, EDTA Not Reportable 02/03/18 23:44 Large Platelets Not Reportable 02/03/18 23:44 Giant Platelets Not Reportable 02/03/18 23:44 Platelet Satelliting Not Reportable 02/03/18 23:44 Plt Morphology Comment Not Reportable 02/03/18 23:44 RBC Morphology Not Reportable 02/03/18 23:44 Dimorphic RBCs Not Reportable 02/03/18 23:44 Polychromasia Not Reportable 02/03/18 23:44 Hypochromasia Not Reportable 02/03/18 23:44 Poikilocytosis Not Reportable 02/03/18 23:44 Anisocytosis Not Reportable 02/03/18 23:44 Microcytosis Not Reportable 02/03/18 23:44 Macrocytosis Not Reportable 02/03/18 23:44 Spherocytes Not Reportable 02/03/18 23:44 Pappenheimer Bodies Not Reportable 02/03/18 23:44 Sickle Cells Not Reportable 02/03/18 23:44 Target Cells Not Reportable 02/03/18 23:44 Tear Drop Cells Not Reportable 02/03/18 23:44 Ovalocytes Not Reportable 02/03/18 23:44 Helmet Cells Not Reportable 02/03/18 23:44 [place] Bodies Not Reportable 02/03/18 23:44 [place] Rings Not Reportable 02/03/18 23:44 [place] Cells Rare 02/03/18 23:44 Bite Cells Not Reportable 02/03/18 23:44 Crenated Cell Not Reportable 02/03/18 23:44 Elliptocytes Not Reportable 02/03/18 23:44 Acanthocytes (Spur) Not Reportable 02/03/18 23:44 Rouleaux Not Reportable 02/03/18 23:44 Hemoglobin C Crystals Not Reportable 02/03/18 23:44 Schistocytes Not Reportable 02/03/18 23:44 Malaria parasites Not Reportable 02/03/18 23:44 Afshin Bodies Not Reportable 02/03/18 23:44 Hem Pathologist Commnt No 02/03/18 23:44 PT 13.0 Sec. (12.2-14.9) 02/04/18 02:59 INR 0.94 (0.87-1.13) 02/04/18 02:59 APTT 30.3 Sec. (24.2-36.6) 02/04/18 02:59 VBG pH 7.204 (7.320-7.420) L 02/03/18 23:44 Sodium 149 mmol/L (137-145) H 02/05/18 00:21 Potassium 3.9 mmol/L (3.6-5.0) 02/05/18 00:21 Chloride 112.1 mmol/L (98-107) H 02/05/18 00:21 Carbon Dioxide 19 mmol/L (22-30) L 02/05/18 00:21 Anion Gap 22 mmol/L 02/05/18 00:21 BUN 10 mg/dL (7-17) 02/05/18 00:21 Creatinine 0.9 mg/dL (0.7-1.2) 02/05/18 00:21 Estimated GFR > 60 ml/min 02/05/18 00:21 BUN/Creatinine Ratio 11 % 02/05/18 00:21 Glucose 122 mg/dL (65-100) H 02/05/18 00:21 POC Glucose 213 (70-105) H 02/05/18 08:48 Hemoglobin A1c 14.0 % (4-6) H 02/04/18 02:59 Calcium 7.3 mg/dL (8.4-10.2) L 02/05/18 00:21 Phosphorus 5.20 mg/dL (2.5-4.5) H 02/04/18 00:56 Magnesium 2.10 mg/dL (1.7-2.3) 02/04/18 00:56 Urine Color Yellow (Yellow) 02/04/18 02:00 Urine Turbidity Clear (Clear) 02/04/18 02:00 Urine pH 5.0 (5.0-7.0) 02/04/18 02:00 Ur Specific Devol 1.023 (1.003-1.030) 02/04/18 02:00 Urine Protein <15 mg/dl mg/dL (Negative) 02/04/18 02:00 Urine Glucose (UA) >=500 mg/dL (Negative) 02/04/18 02:00 Urine Ketones 80 mg/dL (Negative) 02/04/18 02:00 Urine Blood Neg (Negative) 02/04/18 02:00 Urine Nitrite Neg (Negative) 02/04/18 02:00 Urine Bilirubin Neg (Negative) 02/04/18 02:00 Urine Urobilinogen < 2.0 mg/dL (<2.0) 02/04/18 02:00 Ur Leukocyte Esterase Neg (Negative) 02/04/18 02:00 Urine WBC (Auto) < 1.0 /HPF (0.0-6.0) 02/04/18 02:00 Urine RBC (Auto) < 1.0 /HPF (0.0-6.0) 02/04/18 02:00 U Epithel Cells (Auto) < 1.0 /HPF (0-13.0) 02/04/18 02:00 Urine Mucus Few /HPF 02/04/18 02:00 Urine HCG, Qual Negative (Negative) 02/04/18 22:30 C. difficile Toxin A&B Negative (Negative) 02/04/18 05:50
[2018-02-05 13:55] LABS: BUN/Creatinine Ratio 8; Blood Urea Nitrogen 7 mg/dL (7-17); Calcium 7.6 mg/dL (8.4-10.2); Hemolysis Index 4
[2018-02-05] MEDS ORDERED: D50W (25GM) Syringe IV PRN (14:36)
[2018-02-05] MEDS ORDERED: REGLAN IV PRN (14:44)
[2018-02-05] MEDS ORDERED: LANTUS SUB-Q ONE ×2 (15:00)
[2018-02-05] MEDS: HumaLOG SUB-Q SCH ×2 (18:22→22:27)
[2018-02-06 05:51] LABS: BUN/Creatinine Ratio 9; Blood Urea Nitrogen 7 mg/dL (7-17); Calcium 7.6 mg/dL (8.4-10.2); Hemolysis Index 3
--- NOTE | 2018-02-06 07:44 | Event Note ---
Date: 02/06/18 Pt. with DKA, now transferred out of ICU. No active pulmonary issues noted. Will thus sign off. Please call with questions, or new issues develop.
[2018-02-06] MEDS ORDERED: LANTUS SUB-Q SCH (08:00)
[2018-02-06] MEDS: LANTUS SUB-Q SCH (09:29)
[2018-02-06] MEDS: SODIUM CHLORIDE FLUSH SYRINGE 10 ML IV SCH ×2 (09:30→21:36)
[2018-02-06] MEDS: HumaLOG SUB-Q SCH ×4 (09:30→23:50)
[2018-02-06] MEDS: NACL 0.9% 1000 ML 1,000 ML IV SCH ×2 (09:30→18:54)
--- NOTE | 2018-02-06 11:37 | Progress Note ---
Assessment and Plan Assessment and plan: Patient is a 32 yo woman with a history of IDDM who presented with intractable n /v leading to retching and coffee ground emesis after repeated vomiting. DKA: continue insulin drip, ivf, follow anion gap Hematemesis resolved, seen by GI IDDM uncontrolled with acidosis: treat with ivf and insulin N/V: treat with antiemetics, keep npo for now Diarrhea, resolved today, c.diffe negative HCG ordered and negative 02/04/18: Still in icu on insulin drip and ivf, anion gap is closing, symptoms are improving, check anion gap at noon. Nurse will call me with results==>anion gap closed, transition to basal bolus regimen and transfer out icu 02/05/18: anion gap remain closed but pt still not tolerating liquids, will add iv reglan, iv ativan prn. Pt takes 30 units of lantus at night and 12 units of novolog tidac at home. Dispo: once tolerating liquids, will d/c home. History Interval history: Patient was seen and examined. Follow-up on current diagnosis of nausea or vomiting. Patient vomited apple juice this morning. Overnight uneventful. Patient denies any chest pain, shortness breath or severe headaches. Imaging, nursing note, chart, labs and old chart reviewed. Discussed with patient. Patient denies any diarrhea currently. Hospitalist Physical - Physical exam Narrative exam: GEN: WDWN, ill-appearing, NAD, AWAKE, ALERT, ORIENTATED HEENT: NCAT, EOMI, PERRL, OP Clear NECK: supple, no adenopathy, no thyromegaly, no JVD CVS/HEART: Regular tachycardia, NORMAL S1S2, pulses present bilaterally CHEST/LUNGS: CTA B, Symmetrical chest expansion, good air entry bilaterally GI/Abdomen: soft, NTND, good bowel sounds, no guarding or rebound /Bladder: no suprapubic tenderness, no CVA or paraspinal tenderness EXT/Skin: no c/c/e, no obvious rash, mucous membranes dry MSK: FROM x 4 Neuro: CN 2-12 grossly intact, no new focal deficits Psych: calm - Constitutional Vitals: Temp Pulse Resp BP Pulse Ox 98.7 F 96 H 16 127/86 100 02/06/18 07:42 02/06/18 07:42 02/06/18 07:42 02/06/18 07:42 02/06/18 09:25 General appearance: Present: no acute distress, well-nourished Results - Labs CBC & Chem 7: 02/04/18 04:23 02/06/18 05:17 Labs: Laboratory Last Values WBC 12.4 K/mm3 (4.5-11.0) H 02/03/18 23:44 RBC 4.10 M/mm3 (3.65-5.03) 02/03/18 23:44 Hgb 11.5 gm/dl (10.1-14.3) 02/04/18 04:23 Hct 34.4 % (30.3-42.9) 02/04/18 04:23 MCV 95 fl (79-97) 02/03/18 23:44 MCH 28 pg (28-32) 02/03/18 23:44 MCHC 30 % (30-34) 02/03/18 23:44 RDW 14.9 % (13.2-15.2) 02/03/18 23:44 Plt Count 173 K/mm3 (140-440) 02/03/18 23:44 Add Manual Diff Complete 02/03/18 23:44 Total Counted 100 02/03/18 23:44 Seg Neutrophils % Acoustic Intelligence Specialist 02/03/18 23:44 Seg Neuts % (Manual) 95.0 % (40.0-70.0) H 02/03/18 23:44 Band Neutrophils % 0 % 02/03/18 23:44 Lymphocytes % (Manual) 2.0 % (13.4-35.0) L 02/03/18 23:44 Reactive Lymphs % (Man) 0 % 02/03/18 23:44 Monocytes % (Manual) 3.0 % (0.0-7.3) 02/03/18 23:44 Eosinophils % (Manual) 0 % (0.0-4.3) 02/03/18 23:44 Basophils % (Manual) 0 % (0.0-1.8) 02/03/18 23:44 Metamyelocytes % 0 % 02/03/18 23:44 Myelocytes % 0 % 02/03/18 23:44 Promyelocytes % 0 % 02/03/18 23:44 Blast Cells % 0 % 02/03/18 23:44 Nucleated RBC % Not Reportable 02/03/18 23:44 Seg Neutrophils # Man 11.8 K/mm3 (1.8-7.7) H 02/03/18 23:44 Band Neutrophils # 0.0 K/mm3 02/03/18 23:44 Lymphocytes # (Manual) 0.2 K/mm3 (1.2-5.4) L 02/03/18 23:44 Abs React Lymphs (Man) 0.0 K/mm3 02/03/18 23:44 Monocytes # (Manual) 0.4 K/mm3 (0.0-0.8) 02/03/18 23:44 Eosinophils # (Manual) 0.0 K/mm3 (0.0-0.4) 02/03/18 23:44 Basophils # (Manual) 0.0 K/mm3 (0.0-0.1) 02/03/18 23:44 Metamyelocytes # 0.0 K/mm3 02/03/18 23:44 Myelocytes # 0.0 K/mm3 02/03/18 23:44 Promyelocytes # 0.0 K/mm3 02/03/18 23:44 Blast Cells # 0.0 K/mm3 02/03/18 23:44 WBC Morphology Not Reportable 02/03/18 23:44 Hypersegmented Neuts Not Reportable 02/03/18 23:44 Hyposegmented Neuts Not Reportable 02/03/18 23:44 Hypogranular Neuts Not Reportable 02/03/18 23:44 Smudge Cells Not Reportable 02/03/18 23:44 Toxic Granulation Not Reportable 02/03/18 23:44 Toxic Vacuolation Not Reportable 02/03/18 23:44 Dohle Bodies Not Reportable 02/03/18 23:44 Pelger-Huet Anomaly Not Reportable 02/03/18 23:44 Lucas Rods Not Reportable 02/03/18 23:44 Platelet Estimate Consistent w auto 02/03/18 23:44 Clumped Platelets Not Reportable 02/03/18 23:44 Plt Clumps, EDTA Not Reportable 02/03/18 23:44 Large Platelets Not Reportable 02/03/18 23:44 Giant Platelets Not Reportable 02/03/18 23:44 Platelet Satelliting Not Reportable 02/03/18 23:44 Plt Morphology Comment Not Reportable 02/03/18 23:44 RBC Morphology Not Reportable 02/03/18 23:44 Dimorphic RBCs Not Reportable 02/03/18 23:44 Polychromasia Not Reportable 02/03/18 23:44 Hypochromasia Not Reportable 02/03/18 23:44 Poikilocytosis Not Reportable 02/03/18 23:44 Anisocytosis Not Reportable 02/03/18 23:44 Microcytosis Not Reportable 02/03/18 23:44 Macrocytosis Not Reportable 02/03/18 23:44 Spherocytes Not Reportable 02/03/18 23:44 Pappenheimer Bodies Not Reportable 02/03/18 23:44 Sickle Cells Not Reportable 02/03/18 23:44 Target Cells Not Reportable 02/03/18 23:44 Tear Drop Cells Not Reportable 02/03/18 23:44 Ovalocytes Not Reportable 02/03/18 23:44 Helmet Cells Not Reportable 02/03/18 23:44 [place]-Noel Bodies Not Reportable 02/03/18 23:44 [place] Rings Not Reportable 02/03/18 23:44 Jason Cells Rare 02/03/18 23:44 Bite Cells Not Reportable 02/03/18 23:44 Crenated Cell Not Reportable 02/03/18 23:44 Elliptocytes Not Reportable 02/03/18 23:44 Acanthocytes (Spur) Not Reportable 02/03/18 23:44 Rouleaux Not Reportable 02/03/18 23:44 Hemoglobin C Crystals Not Reportable 02/03/18 23:44 Schistocytes Not Reportable 02/03/18 23:44 Malaria parasites Not Reportable 02/03/18 23:44 Afshin Bodies Not Reportable 02/03/18 23:44 Hem Pathologist Commnt No 02/03/18 23:44 PT 13.0 Sec. (12.2-14.9) 02/04/18 02:59 INR 0.94 (0.87-1.13) 02/04/18 02:59 APTT 30.3 Sec. (24.2-36.6) 02/04/18 02:59 VBG pH 7.204 (7.320-7.420) L 02/03/18 23:44 Sodium 138 mmol/L (137-145) 02/06/18 05:17 Potassium 3.6 mmol/L (3.6-5.0) 02/06/18 05:17 Chloride 102.5 mmol/L (98-107) 02/06/18 05:17 Carbon Dioxide 20 mmol/L (22-30) L 02/06/18 05:17 Anion Gap 19 mmol/L 02/06/18 05:17 BUN 7 mg/dL (7-17) 02/06/18 05:17 Creatinine 0.8 mg/dL (0.7-1.2) 02/06/18 05:17 Estimated GFR > 60 ml/min 02/06/18 05:17 BUN/Creatinine Ratio 9 % 02/06/18 05:17 Glucose 288 mg/dL (65-100) H 02/06/18 05:17 POC Glucose 282 (70-105) H 02/06/18 06:34 Hemoglobin A1c 14.0 % (4-6) H 02/04/18 02:59 Calcium 7.6 mg/dL (8.4-10.2) L 02/06/18 05:17 Phosphorus 5.20 mg/dL (2.5-4.5) H 02/04/18 00:56 Magnesium 2.10 mg/dL (1.7-2.3) 02/04/18 00:56 Urine Color Yellow (Yellow) 02/04/18 02:00 Urine Turbidity Clear (Clear) 02/04/18 02:00 Urine pH 5.0 (5.0-7.0) 02/04/18 02:00 Ur Specific [place] 1.023 (1.003-1.030) 02/04/18 02:00 Urine Protein <15 mg/dl mg/dL (Negative) 02/04/18 02:00 Urine Glucose (UA) >=500 mg/dL (Negative) 02/04/18 02:00 Urine Ketones 80 mg/dL (Negative) 02/04/18 02:00 Urine Blood Neg (Negative) 02/04/18 02:00 Urine Nitrite Neg (Negative) 02/04/18 02:00 Urine Bilirubin Neg (Negative) 02/04/18 02:00 Urine Urobilinogen < 2.0 mg/dL (<2.0) 02/04/18 02:00 Ur Leukocyte Esterase Neg (Negative) 02/04/18 02:00 Urine WBC (Auto) < 1.0 /HPF (0.0-6.0) 02/04/18 02:00 Urine RBC (Auto) < 1.0 /HPF (0.0-6.0) 02/04/18 02:00 U Epithel Cells (Auto) < 1.0 /HPF (0-13.0) 02/04/18 02:00 Urine Mucus Few /HPF 02/04/18 02:00 Urine HCG, Qual Negative (Negative) 02/04/18 22:30 C. difficile Toxin A&B Negative (Negative) 02/04/18 05:50
[2018-02-06] MEDS: REGLAN PO SCH ×3 (13:07→21:35)
[2018-02-06] MEDS: ZOFRAN IV PRN (20:22)
[2018-02-07] MEDS: NACL 0.9% 1000 ML 1,000 ML IV SCH (05:28)
[2018-02-07 07:22] LABS: BUN/Creatinine Ratio 10; Blood Urea Nitrogen 7 mg/dL (7-17); Calcium 7.6 mg/dL (8.4-10.2); Hemolysis Index 4
[2018-02-07] MEDS ORDERED: POTASSIUM CHLORIDE PO ONE (08:00)
[2018-02-07] MEDS: REGLAN PO SCH ×2 (08:43→12:22)
[2018-02-07] MEDS: HumaLOG SUB-Q SCH ×2 (08:43→12:22)
[2018-02-07] MEDS: LANTUS SUB-Q SCH (08:44)
--- NOTE | 2018-02-07 11:35 | Discharge Summary ---
Providers - Providers Date of Admission: 02/04/18 01:32 Date of discharge: 02/07/18 Attending physician: DANIEL HAYES 02/04/18 01:32 Consult to Physician [CONS] Routine Comment: Consulting Provider: NOELLE MOLINA Physician Instructions: Reason For Exam: coffee ground emesis Consult to Physician [CONS] Routine Comment: Consulting Provider: SYLWIA WATERS Physician Instructions: Reason For Exam: cc Primary care physician: MARIANN SOFIA Hospitalization Condition: Stable Hospital course: Patient is a 32 yo woman with a history of IDDM who presented with intractable n /v leading to retching and coffee ground emesis after repeated vomiting. DKA: continue insulin drip, ivf, follow anion gap Hematemesis resolved, seen by GI IDDM uncontrolled with acidosis: treat with ivf and insulin N/V: treat with antiemetics, keep npo for now Diarrhea, resolved today, c.diffe negative HCG ordered and negative 02/05/18: Still in icu on insulin drip and ivf, anion gap is closing, symptoms are improving, check anion gap at noon. Nurse will call me with results==>anion gap closed, transition to basal bolus regimen and transfer out icu 02/06/18: anion gap remain closed but pt still not tolerating liquids, will add iv reglan, iv ativan prn. Pt takes 30 units of lantus at night and 12 units of novolog tidac at home. Dispo: once tolerating liquids, will d/c home. 02/07/18: tolerating liquids w/o vomiting, stressed the use of jose luis and residential substance abuse counselor on prison use of reglan, Disposition: DC-01 TO HOME OR SELFCARE Time spent for discharge: 35 minutes Core Measure Documentation - Palliative Care Palliative Care/ Comfort Measures: Not Applicable - Core Measures Any of the following diagnoses?: none - VTE Discharge Requirements Deep Vein Thrombosis/Pulmonary Embolism Present on Admission: No Has pt received <5 days of overlap therapy or INR<2.0: No Anticoagulant overlap therapy prescribed at discharge: No Contraindication No Overlap Therapy order at DC: Not Indicated Exam - Physical Exam Narrative exam: GEN: WDWN, NAD, AWAKE, ALERT, ORIENTATED x 3 HEENT: NCAT, EOMI, PERRL, OP Clear NECK: supple, no adenopathy, no thyromegaly, no JVD CVS/HEART: rrr, NORMAL S1S2, pulses present bilaterally CHEST/LUNGS: CTA B, Symmetrical chest expansion, good air entry bilaterally GI/Abdomen: soft, NTND, good bowel sounds, no guarding or rebound /Bladder: no suprapubic tenderness, no CVA or paraspinal tenderness EXT/Skin: no c/c/e, no obvious rash, mucous membranes dry MSK: FROM x 4 Neuro: CN 2-12 grossly intact, no new focal deficits Psych: calm - Constitutional Vitals: Temp Pulse Resp BP Pulse Ox 98.4 F 87 16 135/91 98 02/07/18 07:38 02/07/18 07:38 02/07/18 07:38 02/07/18 07:38 02/07/18 07:38 Plan Activity: other (no strenous activities ) Diet: clear liquids (advance as tolerates, use diet jose luis moses with each meal and as needed, get jose luis root and make tea) Special Instructions: record blood sugar diary (three times a day with meals and at bedtime) Additional Instructions: Use of Reglan aka metocloperamide can cause irreversible movement disorder, use at own risk. Taking for short time may prevent movement disorder. Stop medications with any twitching or movement issues and notify pcp. Take reglan prior to meals and at bedtime Follow up with: MARIANN SOFIA MD [Primary Care Provider] - 3-5 Days Prescriptions: Insulin Glargine [Lantus VIAL] 20 units SUB-Q QAMDIAB #100 units Lispro Insulin [Humalog] 1 dose SUB-Q ACHS PRN #1 vial PRN Reason: Hyperglycemia Metoclopramide [Reglan TAB] 10 mg PO ACHS #30 tablet
[2018-02-07 11:54] VITALS: BP 96/64
[2018-02-07] MEDS: SODIUM CHLORIDE FLUSH SYRINGE 10 ML IV SCH (12:22)
== END 2018-02-07 16:04 | disposition home or self-care (01) | DRG 368 ==
LOC: ED 23:33 → CC1 02-04 01:32 → 3A 02-05 18:10
PROVIDERS: ADMIT Internal Medicine; ATTEND Internal Medicine
DX: K22.6 Gastro-esophageal laceration-hemorrhage syndrome (principal); E10.10 Type 1 diabetes mellitus with ketoacidosis without coma; K92.2 Gastrointestinal hemorrhage, unspecified; R19.7 Diarrhea, unspecified
CPT/HCPCS: 36415; 71045; 80048; 81001; 81025; 82805; 82962; 83036; 83735; 84100; 85007; 85014; 85018; 85025; 85610; 85730; 87045; 87324; 96374; 96375; 96376; C9113; J0780; J1815; J2405; J2765; J3480; J7030; J7070